=== PATIENT | male | born 1960 | race Caucasian/White ===

== ENCOUNTER 2020-11-07 00:38 | Emergency (ER) | payer MEDICAID ==
[~2020-11-07] VITALS: Ht 160 cm; Wt 68.0 kg
[2020-11-07] MEDS ORDERED: MORPHINE SULFATE 4 MG/ML CPJ (NOT FOR IM USE) IV STA (01:11)
[2020-11-07] MEDS ORDERED: ONDANSETRON HCL 4MG/2ML INJ IV STA (01:11)
[2020-11-07] MEDS ORDERED: SODIUM CHLORIDE 0.9% 1,000 ML IV ONE (01:15)
[2020-11-07 02:35] LABS: BASOPHILS % 0.3 % (0.0-2.0); EOSINOPHILS % 0.2 % (0.0-5.0); HEMOGLOBIN. 15.2 g/dL (14.0-18.0); LYMPHOCYTES % 8.5 % (20.0-50.0); MEAN CORPUSCULAR HEMOGLOBIN 28.8 pg (28.0-32.0); MEAN CORPUSCULAR VOLUME 86.8 fL (80.0-94.0); MEAN PLATELET VOLUME 8.4 fl (7.4-10.4); MONOCYTES % 6.7 % (2.0-8.0); NEUTROPHILS % 84.3 % (40.0-76.0); PLATELET 334 x1000/uL (130-400); RED CELL DISTRIBUTION WIDTH 14.4 % (11.6-14.6)
[2020-11-07 02:42] LABS: CHLORIDE 106 mEq/L (98-107)
[2020-11-07 02:45] LABS: INR 1.2; PROTHROMBIN TIME 12.4 sec (9.6-11.0)
[2020-11-07] MEDS ORDERED: METRONIDAZOLE 500 MG PREMIX 100 ML IV NR (03:00)
[2020-11-07] MEDS ORDERED: CEFTRIAXONE 1 G PREMIX 50 ML IV NR (03:30)
[2020-11-07] MEDS ORDERED: ONDANSETRON HCL 4MG/2ML INJ IV ONE (04:00)
[2020-11-07 04:07] LABS: CLARITY URINE CLEAR (CLEAR); COLOR URINE YELLOW (YELLOW); KETONES URINE 1+ (NEGATIVE); LEUKOCYTE ESTERASE URINE NEGATIVE (NEGATIVE); NITRITE URINE NEGATIVE (NEGATIVE); OCCULT BLOOD URINE NEGATIVE (NEGATIVE); PROTEIN URINE TRACE (NEGATIVE); SPECIFIC GRAVITY URINE 1.021 (1.005-1.030); UROBILINOGEN URINE 0.2 E.U./dL (0.2-1.0)
[2020-11-07 08:45] VITALS: BP 168/8
== END 2020-11-07 09:19 | disposition short-term general hospital (02) ==
LOC: ER 01:03
DX: R10.9 Unspecified abdominal pain (principal); D72.829 Elevated white blood cell count, unspecified; E11.9 Type 2 diabetes mellitus without complications; I10 Essential (primary) hypertension; Z86.59 Personal history of other mental and behavioral disorders; Z86.39 Personal history of other endocrine, nutritional and metabolic disease
CPT/HCPCS: 36415; 71045; 74176; 80053; 81003; 83605; 83690; 84484; 85025; 85610; 87040; 93005; 96361; 96365; 96368; 96375; 96376; 99285; J0696; J2270; J2405; J3490; J7030; Z7610

== ENCOUNTER 2021-07-07 11:52 | Inpatient (IN) | payer MEDICAID ==
[~2021-07-07] VITALS: Ht 162.6 cm; Wt 76.2 kg
[2021-07-07 12:56] LABS: BASOPHILS % 0.4 % (0.0-2.0); EOSINOPHILS % 2.4 % (0.0-5.0); HEMATOCRIT. 46.6 % (42.0-52.0); LYMPHOCYTES % 11.4 % (20.0-50.0); MEAN CORPUSCULAR VOLUME 87.5 fL (80.0-94.0); MEAN PLATELET VOLUME 7.8 fl (7.4-10.4); MONOCYTES % 8.4 % (2.0-8.0); NEUTROPHILS % 77.4 % (40.0-76.0); PLATELET 275 x1000/uL (130-400); RED BLOOD CELL COUNT 5.33 mill/uL (4.7-6.1); RED CELL DISTRIBUTION WIDTH 14.3 % (11.6-14.6)
[2021-07-07 13:03] LABS: CHLORIDE 107 mEq/L (98-107)
[2021-07-07 13:08] LABS: ETHANOL BLOOD < 10 mg/dL
[2021-07-07] MEDS ORDERED: ONDANSETRON 4MG ODT PO ONE (17:45)
[2021-07-07] MEDS ORDERED: ACETAMINOPHEN 325MG TABLET PO ONE (17:45)
[2021-07-07 18:31] LABS: CLARITY URINE CLEAR (CLEAR); COLOR URINE YELLOW (YELLOW); KETONES URINE TRACE (NEGATIVE); LEUKOCYTE ESTERASE URINE NEGATIVE (NEGATIVE); NITRITE URINE NEGATIVE (NEGATIVE); OCCULT BLOOD URINE NEGATIVE (NEGATIVE); PH URINE >=9.0 (4.5-8.0); PROTEIN URINE TRACE (NEGATIVE); SPECIFIC GRAVITY URINE 1.025 (1.005-1.030)
[2021-07-07 18:53] LABS: *AMPHETAMINES SCREEN URINE NEGATIVE (NEGATIVE); *BARBITURATES SCREEN URINE NEGATIVE (NEGATIVE); *BENZODIAZEPINES SCREEN URINE NEGATIVE (NEGATIVE); *COCAINE SCREEN URINE NEGATIVE (NEGATIVE); METHADONE URINE SCREEN NEGATIVE (NEGATIVE)
[2021-07-07 18:54] LABS: CANNABINOID URINE SCREEN NEGATIVE (NEGATIVE); OPIATES URINE SCREEN NEGATIVE (NEGATIVE); PHENCYCLIDINE URINE SCREEN NEGATIVE (NEGATIVE)
[2021-07-08] MEDS ORDERED: CLONIDINE 0.1MG TABLET PO PRN (03:00)
[2021-07-08] MEDS: ONDANSETRON HCL 4MG/2ML INJ IV PRN ×3 (03:16→17:51)
[2021-07-08] MEDS: ASPIRIN 81MG TABLET PO SCH (09:35)
[2021-07-08] MEDS: METOPROLOL TARTRATE 50MG TABLET PO SCH ×2 (09:35→20:44)
[2021-07-08 12:00] VITALS: BP 106/77
[2021-07-08 13:10] VITALS: BP 119/74
[2021-07-08 16:00] VITALS: BP 114/76
[2021-07-08] MEDS ORDERED: KEPP500 PO (18:22)
[2021-07-08] MEDS ORDERED: DOCU250C14 MT (18:22)
[2021-07-08] MEDS ORDERED: FINA5TAB11 MT (18:30)
[2021-07-08] MEDS ORDERED: RISP0.5T65 PO (18:30)
[2021-07-08] MEDS ORDERED: LIP40 MT (18:30)
[2021-07-08] MEDS ORDERED: DIVA250T4 PO (18:30)
[2021-07-08] MEDS ORDERED: ASPI-1497 MT (18:30)
[2021-07-08 20:00] VITALS: BP 110/73
[2021-07-08] MEDS: ENOXAPARIN 40MG/0.4ML SYR SUBCUT SCH (20:44)
[2021-07-09] VITALS: BP 114/63
[2021-07-09 04:00] VITALS: BP 100/69
[2021-07-09 08:00] VITALS: BP 99/72
[2021-07-09 08:42] LABS: BASOPHILS % 0.3 % (0.0-2.0); EOSINOPHILS % 0.1 % (0.0-5.0); HEMATOCRIT. 39.6 % (42.0-52.0); HEMOGLOBIN. 13.5 g/dL (14.0-18.0); LYMPHOCYTES % 9.3 % (20.0-50.0); MEAN CORPUSCULAR HEMOGLOBIN 29.4 pg (28.0-32.0); MEAN PLATELET VOLUME 7.7 fl (7.4-10.4); NEUTROPHILS % 80.3 % (40.0-76.0); PLATELET 301 x1000/uL (130-400); RED CELL DISTRIBUTION WIDTH 13.8 % (11.6-14.6)
[2021-07-09 08:43] LABS: CHLORIDE 104 mEq/L (98-107)
[2021-07-09] MEDS: METOPROLOL TARTRATE 50MG TABLET PO SCH ×2 (09:00→21:00)
[2021-07-09] MEDS: ASPIRIN 81MG TABLET PO SCH (10:08)
[2021-07-09 12:00] VITALS: BP 108/75
[2021-07-09 16:02] VITALS: BP 117/68
[2021-07-09] MEDS: PIPERACILLIN/TAZOBACTAM 3.375 G in DEXTROSE 5% WATER 50 ML IV SCH ×2 (16:35→21:03)
[2021-07-09 20:00] VITALS: BP 100/54
[2021-07-09] MEDS: ENOXAPARIN 40MG/0.4ML SYR SUBCUT SCH (21:03)
[2021-07-10] VITALS: BP 99/56
[2021-07-10 04:00] VITALS: BP 111/64
[2021-07-10] MEDS: PIPERACILLIN/TAZOBACTAM 3.375 G in DEXTROSE 5% WATER 50 ML IV SCH ×3 (05:01→21:00)
[2021-07-10 07:54] LABS: HEMATOCRIT. 33.7 % (42.0-52.0); HEMOGLOBIN. 11.7 g/dL (14.0-18.0); MEAN CORPUSCULAR HEMOGLOBIN 29.6 pg (28.0-32.0); MEAN PLATELET VOLUME 7.5 fl (7.4-10.4); PLATELET 252 x1000/uL (130-400); RED BLOOD CELL COUNT 3.96 mill/uL (4.7-6.1); RED CELL DISTRIBUTION WIDTH 13.7 % (11.6-14.6)
[2021-07-10 07:58] LABS: CHLORIDE 108 mEq/L (98-107)
[2021-07-10 08:00] VITALS: BP 112/74
[2021-07-10] MEDS: METOPROLOL TARTRATE 50MG TABLET PO SCH ×2 (09:23→20:43)
[2021-07-10] MEDS: ASPIRIN 81MG TABLET PO SCH (09:23)
[2021-07-10] MEDS ORDERED: IOHEXOL-300 100 ML BOTTLE ONE (10:15)
[2021-07-10 12:00] VITALS: BP 106/69
[2021-07-10 14:15] LABS: PLATELET ESTIMATE NORMAL
[2021-07-10 16:00] VITALS: BP 117/73
[2021-07-10 20:00] VITALS: BP 108/67
[2021-07-10] MEDS: ENOXAPARIN 40MG/0.4ML SYR SUBCUT SCH (21:00)
[2021-07-11] VITALS (7 sets, daily range): BP systolic 110–125; BP diastolic 52–80
[2021-07-11] MEDS: PIPERACILLIN/TAZOBACTAM 3.375 G in DEXTROSE 5% WATER 50 ML IV SCH ×2 (05:02→13:37)
[2021-07-11] MEDS: METOPROLOL TARTRATE 50MG TABLET PO SCH (09:32)
[2021-07-11] MEDS: ASPIRIN 81MG TABLET PO SCH (09:32)
[2021-07-12] MEDS ORDERED: CIPR-263 MT (17:18)
== END 2021-07-11 20:51 | DRG 720 ==
LOC: ER 11:52 → 5WST 21:09 → EDBEDREQ 21:20 → EDBEDREQTM 21:20 → MICUSO 22:26 → 7EST 07-08 13:01
PROVIDERS: ADMIT Internal Medicine; ATTEND Internal Medicine
PROC: 02HV33Z Insertion of Infusion Device into Superior Vena Cava, Percutaneous Approach (ICD-10-PCS; principal; 2021-07-07)
PROC: B548ZZA Ultrasonography of Superior Vena Cava, Guidance (ICD-10-PCS; 2021-07-07)
DX: A41.9 Sepsis, unspecified organism (principal); E03.9 Hypothyroidism, unspecified; K52.9 Noninfective gastroenteritis and colitis, unspecified; J44.9 Chronic obstructive pulmonary disease, unspecified; E11.9 Type 2 diabetes mellitus without complications; F20.9 Schizophrenia, unspecified; I10 Essential (primary) hypertension; I45.10 Unspecified right bundle-branch block; K21.9 Gastro-esophageal reflux disease without esophagitis; R07.89 Other chest pain; Z20.822 Contact with and (suspected) exposure to COVID-19; Z83.3 Family history of diabetes mellitus
CPT/HCPCS: 36415; 71045; 74177; 76937; 80048; 80053; 80305; 80320; 81003; 82962; 83880; 84484; 85025; 87426; 93005; 93306; 99285; C1725; J1650; J2405; J2543; J7060; Q0162; Q9967; G0480

== ENCOUNTER 2021-07-12 07:50 | Emergency (ER) | payer MEDICAID ==
[~2021-07-12] VITALS: Ht 167.6 cm; Wt 60.0 kg
[~2021-07-12 07:50] MED LIST: ASPI-1497 MT; DIVA250T4 PO; DOCU250C14 MT; FINA5TAB11 MT; KEPP500 PO; LIP40 MT; RISP0.5T65 PO
[2021-07-12] MEDS ORDERED: LEVETIRACETAM 1000MG PREMIX 100 ML IV ONE (08:45)
[2021-07-12 09:37] LABS: BASOPHILS % 0.5 % (0.0-2.0); EOSINOPHILS % 0.3 % (0.0-5.0); HEMATOCRIT. 37.7 % (42.0-52.0); HEMOGLOBIN. 12.9 g/dL (14.0-18.0); LYMPHOCYTES % 17.4 % (20.0-50.0); MEAN CORPUSCULAR HEMOGLOBIN 29.8 pg (28.0-32.0); MEAN CORPUSCULAR VOLUME 86.8 fL (80.0-94.0); MONOCYTES % 12.9 % (2.0-8.0); NEUTROPHILS % 68.9 % (40.0-76.0); RED BLOOD CELL COUNT 4.34 mill/uL (4.7-6.1); RED CELL DISTRIBUTION WIDTH 13.9 % (11.6-14.6)
[2021-07-12 09:42] LABS: CHLORIDE 111 mEq/L (98-107)
[2021-07-12 09:45] LABS: ETHANOL BLOOD < 10 mg/dL
[2021-07-12 13:14] LABS: PLATELET 303 x1000/uL (130-400)
[2021-07-12 13:15] LABS: MEAN PLATELET VOLUME 7.5 fl (7.4-10.4); PLATELET ESTIMATE NORMAL
[2021-07-12 15:54] LABS: *AMPHETAMINES SCREEN URINE NEGATIVE (NEGATIVE); *BARBITURATES SCREEN URINE NEGATIVE (NEGATIVE); *BENZODIAZEPINES SCREEN URINE NEGATIVE (NEGATIVE); *COCAINE SCREEN URINE NEGATIVE (NEGATIVE)
[2021-07-12 15:55] LABS: CANNABINOID URINE SCREEN NEGATIVE (NEGATIVE); METHADONE URINE SCREEN NEGATIVE (NEGATIVE); OPIATES URINE SCREEN NEGATIVE (NEGATIVE); PHENCYCLIDINE URINE SCREEN NEGATIVE (NEGATIVE)
[2021-07-12 15:57] LABS: CLARITY URINE CLEAR (CLEAR); COLOR URINE YELLOW (YELLOW); KETONES URINE NEGATIVE (NEGATIVE); LEUKOCYTE ESTERASE URINE TRACE (NEGATIVE); NITRITE URINE NEGATIVE (NEGATIVE); OCCULT BLOOD URINE NEGATIVE (NEGATIVE); PH URINE 6.5 (4.5-8.0); PROTEIN URINE NEGATIVE (NEGATIVE); SPECIFIC GRAVITY URINE 1.018 (1.005-1.030); UROBILINOGEN URINE 0.2 E.U./dL (0.2-1.0)
[2021-07-12] MEDS ORDERED: CIPR-263 MT (17:18)
[2021-07-12 23:30] VITALS: BP 112/78
== END 2021-07-13 00:22 ==
LOC: ER 08:02
DX: G40.909 Epilepsy, unspecified, not intractable, without status epilepticus (principal); F03.90 Unspecified dementia, unspecified severity, without behavioral disturbance, psychotic disturbance, mood disturbance, and anxiety; E78.00 Pure hypercholesterolemia, unspecified; Z79.82 Long term (current) use of aspirin
CPT/HCPCS: 36415; 70450; 80053; 80305; 80320; 81003; 85025; 93005; 96365; 96366; 99285; J1953; Z7610; G0480

== ENCOUNTER 2021-07-15 19:52 | Inpatient (IN) | payer MEDICAID ==
[~2021-07-15] VITALS: Ht 162.6 cm; Wt 83.5 kg
[~2021-07-15 19:52] MED LIST changes: +CIPR-263 MT
[2021-07-15] MEDS ORDERED: LEVETIRACETAM 1000MG PREMIX 100 ML IV ONE (21:15)
[2021-07-15 22:48] LABS: BASOPHILS % 0.4 % (0.0-2.0); EOSINOPHILS % 1.1 % (0.0-5.0); HEMOGLOBIN. 11.5 g/dL (14.0-18.0); LYMPHOCYTES % 21.6 % (20.0-50.0); MEAN CORPUSCULAR HEMOGLOBIN 29.1 pg (28.0-32.0); MEAN CORPUSCULAR VOLUME 88.1 fL (80.0-94.0); MEAN PLATELET VOLUME 7.5 fl (7.4-10.4); MONOCYTES % 14.1 % (2.0-8.0); NEUTROPHILS % 62.8 % (40.0-76.0); PLATELET 358 x1000/uL (130-400); RED BLOOD CELL COUNT 3.97 mill/uL (4.7-6.1); RED CELL DISTRIBUTION WIDTH 13.9 % (11.6-14.6)
[2021-07-15 22:54] LABS: CHLORIDE 110 mEq/L (98-107)
[2021-07-16 01:34] LABS: CLARITY URINE CLEAR (CLEAR); COLOR URINE YELLOW (YELLOW); KETONES URINE NEGATIVE (NEGATIVE); LEUKOCYTE ESTERASE URINE TRACE (NEGATIVE); NITRITE URINE NEGATIVE (NEGATIVE); OCCULT BLOOD URINE NEGATIVE (NEGATIVE); PH URINE 6.5 (4.5-8.0); PROTEIN URINE NEGATIVE (NEGATIVE); SPECIFIC GRAVITY URINE 1.022 (1.005-1.030); UROBILINOGEN URINE 0.2 E.U./dL (0.2-1.0)
[2021-07-16 01:53] LABS: *AMPHETAMINES SCREEN URINE NEGATIVE (NEGATIVE)
[2021-07-16 01:54] LABS: *BARBITURATES SCREEN URINE NEGATIVE (NEGATIVE); *BENZODIAZEPINES SCREEN URINE NEGATIVE (NEGATIVE); *COCAINE SCREEN URINE NEGATIVE (NEGATIVE); METHADONE URINE SCREEN NEGATIVE (NEGATIVE); OPIATES URINE SCREEN NEGATIVE (NEGATIVE); PHENCYCLIDINE URINE SCREEN NEGATIVE (NEGATIVE)
[2021-07-16 01:55] LABS: CANNABINOID URINE SCREEN NEGATIVE (NEGATIVE)
[2021-07-16] MEDS ORDERED: IPRATROPIUM BROMIDE (0.02%) 0.5MG/2.5ML NEB HHN STA (02:49)
[2021-07-16] MEDS ORDERED: LORAZEPAM 2MG/ML CPJ IV ONE (03:00)
[2021-07-16] MEDS: ALBUTEROL (0.083%) 2.5MG/3ML NEB HHN SCH (03:08)
[2021-07-16] MEDS ORDERED: SODIUM CHLORIDE 0.9% 500 ML IV ONE (03:15)
[2021-07-16] MEDS ORDERED: METHYLPREDNISOLONE SOD SUCC 125 MG/2 ML VIAL IV STA (03:34)
[2021-07-16 08:00] VITALS: BP 119/69
[2021-07-16 09:00] VITALS: BP 119/69
[2021-07-16] MEDS ORDERED: ACETAMINOPHEN 325MG TABLET PO PRN (09:00)
[2021-07-16] MEDS ORDERED: ONDANSETRON HCL 4MG/2ML INJ IV PRN (09:00)
[2021-07-16] MEDS ORDERED: DIVALPROEX SODIUM 250MG DR TABLET PO SCH (09:45)
[2021-07-16] MEDS: LEVETIRACETAM 500MG TABLET PO SCH ×2 (10:16→16:33)
[2021-07-16] MEDS: LORAZEPAM 2MG/ML CPJ IV PRN ×3 (10:48→17:42)
[2021-07-16 12:00] VITALS: BP 120/72
[2021-07-16 15:55] VITALS: BP 130/79
[2021-07-16] MEDS ORDERED: LEVETIRACETAM 1,000 MG in SODIUM CHLORIDE 0.9% 100 ML IV SCH (19:45)
[2021-07-16 20:00] VITALS: BP 138/76
[2021-07-16] MEDS: LEVETIRACETAM 1,000 MG in SODIUM CHLORIDE 0.9% 100 ML IV SCH (20:47)
[2021-07-16] MEDS ORDERED: PHENYTOIN SODIUM 500 MG in SODIUM CHLORIDE 0.9% 50 ML IV ONE (21:00)
[2021-07-16] MEDS ORDERED: LEVETIRACETAM 1000MG PREMIX 100 ML IV SCH (21:00)
[2021-07-16] MEDS: PHENYTOIN SODIUM 100MG/2ML VIAL IV SCH (22:02)
[2021-07-17] VITALS (7 sets, daily range): BP systolic 100–149; BP diastolic 54–94
[2021-07-17] MEDS: PHENYTOIN SODIUM 100MG/2ML VIAL IV SCH ×2 (06:10→13:15)
[2021-07-17] MEDS: LEVETIRACETAM 1,000 MG in SODIUM CHLORIDE 0.9% 100 ML IV SCH (08:47)
[2021-07-17] MEDS: PHENYTOIN SODIUM EXTENDED 100MG CAPSULE PO SCH (21:36)
[2021-07-17] MEDS: LEVETIRACETAM 500MG TABLET PO SCH (21:37)
[2021-07-18] VITALS (7 sets, daily range): BP systolic 99–116; BP diastolic 59–78
[2021-07-18] MEDS: PHENYTOIN SODIUM EXTENDED 100MG CAPSULE PO SCH ×3 (05:52→21:07)
[2021-07-18] MEDS: LEVETIRACETAM 500MG TABLET PO SCH ×2 (08:32→21:08)
[2021-07-18 13:46] LABS: BASOPHILS % 0.2 % (0.0-2.0); EOSINOPHILS % 0.9 % (0.0-5.0); HEMATOCRIT. 36.1 % (42.0-52.0); HEMOGLOBIN. 12.1 g/dL (14.0-18.0); LYMPHOCYTES % 21.1 % (20.0-50.0); MEAN CORPUSCULAR HEMOGLOBIN 29.2 pg (28.0-32.0); MEAN CORPUSCULAR VOLUME 87.1 fL (80.0-94.0); MEAN PLATELET VOLUME 7.9 fl (7.4-10.4); MONOCYTES % 7.5 % (2.0-8.0); NEUTROPHILS % 70.3 % (40.0-76.0); PLATELET 383 x1000/uL (130-400); RED BLOOD CELL COUNT 4.14 mill/uL (4.7-6.1); RED CELL DISTRIBUTION WIDTH 14.2 % (11.6-14.6)
== END 2021-07-18 22:05 | DRG 53 ==
LOC: ER 19:52 → 8WST 07-16 03:07 → ENRESERV 07-16 07:14
PROVIDERS: ADMIT Internal Medicine; ATTEND Internal Medicine
DX: G40.419 Other generalized epilepsy and epileptic syndromes, intractable, without status epilepticus (principal); E44.0 Moderate protein-calorie malnutrition; E87.8 Other disorders of electrolyte and fluid balance, not elsewhere classified; D64.9 Anemia, unspecified; E66.9 Obesity, unspecified; E11.9 Type 2 diabetes mellitus without complications; F20.9 Schizophrenia, unspecified; I10 Essential (primary) hypertension; Z79.2 Long term (current) use of antibiotics; Z79.82 Long term (current) use of aspirin; Z79.899 Other long term (current) drug therapy; Z68.31 Body mass index [BMI] 31.0-31.9, adult
CPT/HCPCS: 36415; 71045; 80053; 80185; 80305; 81003; 84484; 85025; 93005; 94640; 99291; J1165; J1953; J2060; J2930; J7040; J7050

== ENCOUNTER 2022-04-05 09:44 | Emergency (ER) | payer MEDICAID ==
[~2022-04-05] VITALS: Ht 172.7 cm; Wt 80.0 kg
[2022-04-05] MEDS ORDERED: ONDANSETRON 4MG ODT PO ONE (11:00)
[2022-04-05] MEDS ORDERED: ONDA4SOL MT (15:17)
[2022-04-05 16:38] VITALS: BP 116/75
== END 2022-04-05 16:56 ==
LOC: ER 09:44
DX: R11.2 Nausea with vomiting, unspecified (principal); J44.9 Chronic obstructive pulmonary disease, unspecified; I10 Essential (primary) hypertension; E03.9 Hypothyroidism, unspecified; Z79.899 Other long term (current) drug therapy
CPT/HCPCS: 99285; Q0162

== ENCOUNTER 2022-04-06 09:50 | Emergency (ER) | payer MEDICAID ==
[~2022-04-06] VITALS: Ht 177.8 cm; Wt 86.0 kg
[~2022-04-06 09:50] MED LIST changes: +ONDA4SOL MT
[2022-04-06] MEDS ORDERED: KETOROLAC 30MG/ML VIAL IV STA (09:57)
[2022-04-06 11:25] LABS: BASOPHILS % 0.3 % (0.0-2.0); EOSINOPHILS % 0.3 % (0.0-5.0); HEMATOCRIT. 42.5 % (42.0-52.0); HEMOGLOBIN. 14.2 g/dL (14.0-18.0); LYMPHOCYTES % 7.1 % (20.0-50.0); MEAN CORPUSCULAR HEMOGLOBIN 26.8 pg (28.0-32.0); MEAN CORPUSCULAR VOLUME 80.2 fL (80.0-94.0); MEAN PLATELET VOLUME 7.6 fl (7.4-10.4); MONOCYTES % 9.2 % (2.0-8.0); NEUTROPHILS % 83.1 % (40.0-76.0); PLATELET 519 x1000/uL (130-400); RED CELL DISTRIBUTION WIDTH 15.5 % (11.6-14.6)
[2022-04-06 11:38] LABS: CHLORIDE 107 mEq/L (98-107)
[2022-04-06] MEDS: KETOROLAC 30MG/ML VIAL IV NR ×2 (12:10→16:58)
[2022-04-06 22:30] VITALS: BP 128/88
== END 2022-04-06 22:44 | disposition short-term general hospital (02) ==
LOC: ER 09:50 → CANBEDREQ 04-07 07:18
DX: R07.89 Other chest pain (principal); J44.1 Chronic obstructive pulmonary disease with (acute) exacerbation; E11.9 Type 2 diabetes mellitus without complications; I10 Essential (primary) hypertension; Z20.822 Contact with and (suspected) exposure to COVID-19; Z79.899 Other long term (current) drug therapy; Z86.73 Personal history of transient ischemic attack (TIA), and cerebral infarction without residual deficits
CPT/HCPCS: 36415; 71045; 80053; 83880; 84484; 85025; 87426; 93005; 96374; 99285; C9803; J1885; A4315

== ENCOUNTER 2023-01-26 00:10 | Emergency (ER) | payer MEDICAID ==
[~2023-01-26] VITALS: Ht 152.4 cm; Wt 75.0 kg
[2023-01-26 00:13] VITALS: O2SAT 97
[2023-01-26] MEDS ORDERED: MORPHINE SULFATE 4 MG/ML CPJ (NOT FOR IM USE) IV STA (00:36)
[2023-01-26] MEDS ORDERED: CEFTRIAXONE 1GM PREMIX 50 ML IV ONE (00:45)
[2023-01-26] MEDS ORDERED: PANTOPRAZOLE SODIUM 40 MG/VIAL IV ONE (00:45)
[2023-01-26 02:35] LABS: BASOPHILS % 0.9 % (0.0-2.0); EOSINOPHILS % 1.4 % (0.0-5.0); HEMATOCRIT. 46.6 % (42.0-52.0); HEMOGLOBIN. 15.1 g/dL (14.0-18.0); LYMPHOCYTES % 10.7 % (20.0-50.0); MEAN CORPUSCULAR HEMOGLOBIN 27.7 pg (28.0-32.0); MEAN CORPUSCULAR VOLUME 85.1 fL (80.0-94.0); MEAN PLATELET VOLUME 8.2 fl (7.4-10.4); MONOCYTES % 6.1 % (2.0-8.0); NEUTROPHILS % 80.9 % (40.0-76.0); PLATELET 550 x1000/uL (130-400); RED BLOOD CELL COUNT 5.47 mill/uL (4.7-6.1); RED CELL DISTRIBUTION WIDTH 15.1 % (11.6-14.6)
[2023-01-26 02:44] LABS: CHLORIDE 112 mEq/L (98-107)
[2023-01-26] MEDS: PANTOPRAZOLE SODIUM 40 MG/VIAL IV NR ×2 (02:44→02:46)
[2023-01-26] MEDS: MORPHINE SULFATE 4 MG/ML CPJ (NOT FOR IM USE) IV NR ×2 (02:44→02:46)
[2023-01-26 07:04] LABS: INR 1.1; PROTHROMBIN TIME 12.2 sec (9.6-11.0)
[2023-01-26 08:31] VITALS: BP 139/78; PULSE 99; RESP 17; TEMP 97.4
== END 2023-01-26 09:00 | disposition short-term general hospital (02) ==
LOC: ER 02:42 → CANBEDREQ 07:07 → ER 09:00
DX: K92.2 Gastrointestinal hemorrhage, unspecified (principal); I10 Essential (primary) hypertension; E11.9 Type 2 diabetes mellitus without complications; J44.1 Chronic obstructive pulmonary disease with (acute) exacerbation; Z79.899 Other long term (current) drug therapy; Z86.39 Personal history of other endocrine, nutritional and metabolic disease; Z86.59 Personal history of other mental and behavioral disorders
CPT/HCPCS: 80053; 83690; 85025; 85610; 86850; 86900; 86901; 84484; 36415; 71045; 74176; 93005; 96365; 96375; 99285; J0696; C9113; J2270; Z7610 ×2

== ENCOUNTER 2023-09-26 12:08 | Emergency (ER) | payer MEDICAID ==
[~2023-09-26] VITALS: Ht 165.1 cm; Wt 82.0 kg
[~2023-09-26 12:08] MED LIST changes: -RISP0.5T65 PO; +RISP0.5T79 PO
[2023-09-26 12:14] VITALS: O2SAT 100
[2023-09-26] MEDS: LEVETIRACETAM 1000MG PREMIX 100 ML IV ONE (12:15)
[2023-09-26 13:05] LABS: BASOPHILS % 0.6 % (0.0-2.0); EOSINOPHILS % 4.2 % (0.0-5.0); MEAN CORPUSCULAR HEMOGLOBIN 27.5 pg (28.0-32.0); MEAN CORPUSCULAR HGB CONC 33.4 g/dL (31.0-37.0); MEAN CORPUSCULAR VOLUME 82.2 fL (80.0-94.0); MEAN PLATELET VOLUME 7.6 fl (7.4-10.4); MONOCYTES % 8.1 % (2.0-8.0); NEUTROPHILS % 76.1 % (40.0-76.0); PLATELET 554 x1000/uL (130-400); RED BLOOD CELL COUNT 5.11 mill/uL (4.7-6.1); WHITE BLOOD COUNT 10.5 x1000/uL (4.5-11.0)
[2023-09-26 13:19] LABS: ALANINE AMINOTRANSFERASE 17 IU/L (10-49); ALBUMIN 4.5 g/dL (3.2-4.8); ASPARTATE AMINOTRANSFERASE 13 IU/L (<34); BILIRUBIN TOTAL 0.3 mg/dL (0.1-1.0); CALCIUM 9.1 mg/dL (8.7-10.4); CARBON DIOXIDE 26 mEq/L (21-32); CHLORIDE 109 mEq/L (98-107); CREATININE 0.8 mg/dL (0.6-1.3); ETHANOL BLOOD < 10 mg/dL (<10); GLUCOSE 115 mg/dL (70-105); POTASSIUM 4.4 mEq/L (3.5-5.1); PROTEIN TOTAL 7.7 g/dL (6.0-8.3); SODIUM 141 mEq/L (136-145); TROPONIN I HIGH SENSITIVITY < 4 ng/L (3.0-53); UREA NITROGEN BLOOD 8 mg/dL (9-23)
[2023-09-26 15:58] LABS: CLARITY URINE CLEAR (CLEAR); COLOR URINE YELLOW (YELLOW); GLUCOSE URINE NEGATIVE (NEGATIVE); KETONES URINE NEGATIVE (NEGATIVE); LEUKOCYTE ESTERASE URINE NEGATIVE (NEGATIVE); NITRITE URINE NEGATIVE (NEGATIVE); OCCULT BLOOD URINE NEGATIVE (NEGATIVE); PH URINE 7.5 (4.5-8.0); PROTEIN URINE NEGATIVE (NEGATIVE); UROBILINOGEN URINE 0.2 E.U./dL (0.2-1.0)
[2023-09-26 16:26] LABS: *AMPHETAMINES SCREEN URINE NEGATIVE (NEGATIVE); *BARBITURATES SCREEN URINE NEGATIVE (NEGATIVE); *BENZODIAZEPINES SCREEN URINE NEGATIVE (NEGATIVE); *COCAINE SCREEN URINE NEGATIVE (NEGATIVE); CANNABINOID URINE SCREEN NEGATIVE (NEGATIVE); ECSTASY MDMA SCREEN URINE NEGATIVE (NEGATIVE); METHADONE URINE SCREEN Neg (NEGATIVE); OPIATES URINE SCREEN NEGATIVE (NEGATIVE); PHENCYCLIDINE URINE SCREEN NEGATIVE (NEGATIVE)
[2023-09-26 17:56] VITALS: BP 121/69; PULSE 78; RESP 14; TEMP 97.4
== END 2023-09-26 17:58 ==
LOC: ER 12:08
DX: R56.9 Unspecified convulsions (principal); J44.9 Chronic obstructive pulmonary disease, unspecified; E11.9 Type 2 diabetes mellitus without complications; I10 Essential (primary) hypertension; E03.9 Hypothyroidism, unspecified; D64.9 Anemia, unspecified
CPT/HCPCS: 80053; 80305; 81003; 80320; 85025; 84484; 36415; 70450; 96365; 99285; J1953; G0480

== ENCOUNTER 2023-12-19 10:18 | Inpatient (IN) | payer MEDICAID ==
[~2023-12-19] VITALS: Ht 170.2 cm; Wt 78.6 kg
[2023-12-19 11:19] LABS: BASOPHILS % 0.5 % (0.0-2.0); EOSINOPHILS % 1.4 % (0.0-5.0); HEMATOCRIT. 40.3 % (42.0-52.0); HEMOGLOBIN. 13.3 g/dL (14.0-18.0); LYMPHOCYTES % 8.6 % (20.0-50.0); MEAN CORPUSCULAR HEMOGLOBIN 27.1 pg (28.0-32.0); MEAN CORPUSCULAR HGB CONC 33.1 g/dL (31.0-37.0); MEAN CORPUSCULAR VOLUME 81.9 fL (80.0-94.0); MEAN PLATELET VOLUME 7.6 fl (7.4-10.4); MONOCYTES % 10.4 % (2.0-8.0); NEUTROPHILS % 79.1 % (40.0-76.0); PLATELET 410 x1000/uL (130-400); RED BLOOD CELL COUNT 4.92 mill/uL (4.7-6.1); RED CELL DISTRIBUTION WIDTH 15.6 % (11.6-14.6); WHITE BLOOD COUNT 16.1 x1000/uL (4.5-11.0)
[2023-12-19 11:27] LABS: CARBON DIOXIDE 27 mEq/L (21-32); CHLORIDE 105 mEq/L (98-107); POTASSIUM 3.5 mEq/L (3.5-5.1); SODIUM 139 mEq/L (136-145)
[2023-12-19 11:31] LABS: INR 1.3
[2023-12-19 11:33] LABS: CREATININE 0.8 mg/dL (0.6-1.3); GLUCOSE 119 mg/dL (70-105); UREA NITROGEN BLOOD 6 mg/dL (9-23)
[2023-12-19] MEDS: PANTOPRAZOLE SODIUM 40 MG/VIAL IV STA (11:51)
[2023-12-19] MEDS: ONDANSETRON HCL 4MG/2ML INJ IV STA (11:51)
[2023-12-19 17:42] VITALS: BP 106/65; PULSE 80; RESP 18; TEMP 97.9
[2023-12-19 17:48] VITALS: BP 106/65; PULSE 80; RESP 18; TEMP 97.9
[2023-12-19 18:08] LABS: CLARITY URINE CLEAR (CLEAR); COLOR URINE DARK YELLOW (YELLOW); GLUCOSE URINE NEGATIVE (NEGATIVE); KETONES URINE TRACE (NEGATIVE); LEUKOCYTE ESTERASE URINE TRACE (NEGATIVE); NITRITE URINE NEGATIVE (NEGATIVE); OCCULT BLOOD URINE NEGATIVE (NEGATIVE); PROTEIN URINE TRACE (NEGATIVE); SPECIFIC GRAVITY URINE 1.025 (1.005-1.030); UROBILINOGEN URINE 0.2 E.U./dL (0.2-1.0)
[2023-12-19] MEDS ORDERED: ACETAMINOPHEN 325MG TABLET PO PRN (18:30)
[2023-12-19] MEDS ORDERED: ONDANSETRON HCL 4MG/2ML INJ IV PRN (18:30)
[2023-12-19 18:37] LABS: BACTERIA URINE 1+; RBC URINE NONE SEEN /hpf (0-2); SQUAMOUS EPITHELIAL CELL URINE RARE /lpf (RARE/1+); WBC URINE 0-2 /hpf (0-2)
[2023-12-19 19:26] LABS: HEMOGLOBIN 12.6 g/dL (14.0-18.0)
[2023-12-19 20:00] VITALS: BP 134/80; PULSE 91; RESP 20; TEMP 97.8
[2023-12-19 23:52] VITALS: BP 115/66; PULSE 83; RESP 18; TEMP 97
[2023-12-20 04:00] VITALS: BP 121/69; PULSE 87; RESP 18; TEMP 98.1
[2023-12-20 07:26] LABS: CHLORIDE 107 mEq/L (98-107); POTASSIUM 3.4 mEq/L (3.5-5.1); SODIUM 137 mEq/L (136-145)
[2023-12-20 07:27] LABS: CALCIUM 8.4 mg/dL (8.7-10.4); CARBON DIOXIDE 21 mEq/L (21-32)
[2023-12-20 07:32] LABS: CREATININE 0.6 mg/dL (0.6-1.3); GLUCOSE 87 mg/dL (70-105)
[2023-12-20 07:34] LABS: UREA NITROGEN BLOOD < 5 mg/dL (9-23)
[2023-12-20 07:51] LABS: BASOPHILS % 0.5 % (0.0-2.0); EOSINOPHILS % 4.1 % (0.0-5.0); HEMATOCRIT. 37.4 % (42.0-52.0); HEMOGLOBIN. 12.2 g/dL (14.0-18.0); LYMPHOCYTES % 14.1 % (20.0-50.0); MEAN CORPUSCULAR HEMOGLOBIN 27.1 pg (28.0-32.0); MEAN CORPUSCULAR HGB CONC 32.6 g/dL (31.0-37.0); MEAN PLATELET VOLUME 7.9 fl (7.4-10.4); MONOCYTES % 9.9 % (2.0-8.0); NEUTROPHILS % 71.4 % (40.0-76.0); PLATELET 207 x1000/uL (130-400); RED CELL DISTRIBUTION WIDTH 15.5 % (11.6-14.6); WHITE BLOOD COUNT 12.3 x1000/uL (4.5-11.0)
[2023-12-20 08:00] VITALS: BP 113/79; PULSE 80; RESP 20; TEMP 97.6
[2023-12-20] MEDS: PANTOPRAZOLE SODIUM 40 MG/VIAL IV SCH (08:55)
[2023-12-20] MEDS: POTASSIUM CHLORIDE 20MEQ TABLET SR PO NR (08:55)
[2023-12-20 12:00] VITALS: BP 120/79; PULSE 80; RESP 18; TEMP 97.7
[2023-12-20 16:00] VITALS: BP 99/54; PULSE 79; RESP 16; TEMP 97.3
[2023-12-20 20:00] VITALS: BP 133/65; PULSE 102; RESP 20; TEMP 99.1
[2023-12-20 22:26] VITALS: BP 124/66; PULSE 100; TEMP 98.2; O2SAT 98
== END 2023-12-20 23:30 | DRG 243 ==
LOC: ER 10:43 → 5WST 12:36 → EDBEDREQTM 12:44 → EDBEDREQ 12:44 → 7WST 18:26
PROVIDERS: ADMIT Internal Medicine; ATTEND Internal Medicine
DX: K21.01 Gastro-esophageal reflux disease with esophagitis, with bleeding (principal); D64.9 Anemia, unspecified; E11.9 Type 2 diabetes mellitus without complications; D72.829 Elevated white blood cell count, unspecified; F20.9 Schizophrenia, unspecified; I10 Essential (primary) hypertension; J44.9 Chronic obstructive pulmonary disease, unspecified; Z86.73 Personal history of transient ischemic attack (TIA), and cerebral infarction without residual deficits; Z79.899 Other long term (current) drug therapy
CPT/HCPCS: 36415; 80048; 81003; 85014; 85018; 85025; 86850; 86900; 93005; 99285; C9113; J2405

== ENCOUNTER 2024-01-22 08:54 | Emergency (ER) | payer MEDICAID ==
[~2024-01-22] VITALS: Ht 152.4 cm; Wt 65.0 kg
[~2024-01-22 08:54] MED LIST changes: -CIPR-263 MT
[2024-01-22 08:57] VITALS: O2SAT 97
[2024-01-22 10:15] LABS: BASOPHILS % 0.7 % (0.0-2.0); DIFFERENTIAL COMMENT 0; EOSINOPHILS % 2.9 % (0.0-5.0); HEMATOCRIT. 44.1 % (42.0-52.0); HEMOGLOBIN. 14.2 g/dL (14.0-18.0); LYMPHOCYTES % 13.1 % (20.0-50.0); MEAN CORPUSCULAR HEMOGLOBIN 25.8 pg (28.0-32.0); MEAN CORPUSCULAR HGB CONC 32.1 g/dL (31.0-37.0); MEAN CORPUSCULAR VOLUME 80.5 fL (80.0-94.0); MEAN PLATELET VOLUME 7.7 fl (7.4-10.4); MONOCYTES % 9.2 % (2.0-8.0); NEUTROPHILS % 74.1 % (40.0-76.0); PLATELET 520 x1000/uL (130-400); RED BLOOD CELL COUNT 5.48 mill/uL (4.7-6.1); RED CELL DISTRIBUTION WIDTH 15.3 % (11.6-14.6); WHITE BLOOD COUNT 11.4 x1000/uL (4.5-11.0)
[2024-01-22 10:17] LABS: CARBON DIOXIDE 24 mEq/L (21-32); CHLORIDE 108 mEq/L (98-107); POTASSIUM 3.8 mEq/L (3.5-5.1); SODIUM 140 mEq/L (136-145)
[2024-01-22 10:18] LABS: CALCIUM 9.5 mg/dL (8.7-10.4)
[2024-01-22 10:22] LABS: CREATININE 0.8 mg/dL (0.6-1.3); GLUCOSE 104 mg/dL (70-105)
[2024-01-22 10:27] LABS: UREA NITROGEN BLOOD < 5 mg/dL (9-23)
[2024-01-22 11:18] LABS: CLARITY URINE CLEAR (CLEAR); COLOR URINE YELLOW (YELLOW); GLUCOSE URINE NEGATIVE (NEGATIVE); KETONES URINE NEGATIVE (NEGATIVE); LEUKOCYTE ESTERASE URINE TRACE (NEGATIVE); NITRITE URINE NEGATIVE (NEGATIVE); OCCULT BLOOD URINE NEGATIVE (NEGATIVE); PROTEIN URINE NEGATIVE (NEGATIVE); SPECIFIC GRAVITY URINE 1.006 (1.005-1.030); UROBILINOGEN URINE 0.2 E.U./dL (0.2-1.0)
[2024-01-22 11:37] LABS: BACTERIA URINE RARE; RBC URINE NONE SEEN /hpf (0-2); SQUAMOUS EPITHELIAL CELL URINE RARE /lpf (RARE/1+); WBC URINE 0-2 /hpf (0-2); YEAST URINE NONE SEEN
[2024-01-22] MEDS: LEVETIRACETAM 500MG PREMIX 100 ML IV ONE (13:07)
[2024-01-22 17:23] VITALS: BP 131/69; PULSE 70; RESP 14; TEMP 98.3
== END 2024-01-22 17:26 ==
LOC: ER 08:55 → CANBEDREQ 12:58 → ER 17:26
DX: S09.90XA Unspecified injury of head, initial encounter (principal); R56.9 Unspecified convulsions; D64.9 Anemia, unspecified; J44.9 Chronic obstructive pulmonary disease, unspecified; E11.9 Type 2 diabetes mellitus without complications; K21.9 Gastro-esophageal reflux disease without esophagitis; I10 Essential (primary) hypertension; F20.9 Schizophrenia, unspecified; Z79.899 Other long term (current) drug therapy; W18.39XA Other fall on same level, initial encounter; Y93.89 Activity, other specified; Y92.89 Other specified places as the place of occurrence of the external cause; Y99.8 Other external cause status
CPT/HCPCS: 80048; 81003; 82962; 85025; 36415; 70450; 99285; Z7610 ×3

== ENCOUNTER 2024-01-24 10:38 | Emergency (ER) | payer MEDICAID ==
[~2024-01-24] VITALS: Ht 167.6 cm; Wt 75.0 kg
[2024-01-24 10:40] VITALS: O2SAT 98
[2024-01-24 11:30] LABS: HEMATOCRIT. 47.4 % (42.0-52.0); HEMOGLOBIN. 15.5 g/dL (14.0-18.0); MEAN CORPUSCULAR HEMOGLOBIN 26.5 pg (28.0-32.0); MEAN CORPUSCULAR HGB CONC 32.7 g/dL (31.0-37.0); MEAN CORPUSCULAR VOLUME 81.2 fL (80.0-94.0); MEAN PLATELET VOLUME 7.5 fl (7.4-10.4); PLATELET 675 x1000/uL (130-400); RED BLOOD CELL COUNT 5.84 mill/uL (4.7-6.1); WHITE BLOOD COUNT 21.1 x1000/uL (4.5-11.0)
[2024-01-24 11:34] LABS: DIFFERENTIAL COMMENT 1
[2024-01-24 11:42] LABS: CHLORIDE 105 mEq/L (98-107); POTASSIUM 3.4 mEq/L (3.5-5.1); SODIUM 143 mEq/L (136-145)
[2024-01-24 11:43] LABS: CARBON DIOXIDE 25 mEq/L (21-32)
[2024-01-24 11:44] LABS: CALCIUM 9.9 mg/dL (8.7-10.4)
[2024-01-24 11:48] LABS: CREATININE 1.1 mg/dL (0.6-1.3); GLUCOSE 144 mg/dL (70-105)
[2024-01-24 11:49] LABS: UREA NITROGEN BLOOD 6 mg/dL (9-23)
[2024-01-24] MEDS: ONDANSETRON HCL 4MG/2ML INJ IV ONE (12:02)
[2024-01-24] MEDS: PANTOPRAZOLE SODIUM 40 MG/VIAL IV ONE (12:02)
[2024-01-24 12:12] LABS: PLATELET ESTIMATE INCREASED
[2024-01-24 12:21] LABS: TROPONIN I HIGH SENSITIVITY < 4 ng/L (3.0-53)
[2024-01-24] MEDS ORDERED: VANCOMYCIN 1,250 MG in DEXT 5% WATER 250 ML IV SCH (12:45)
[2024-01-24] MEDS: KCL 10MEQ/50ML PREMIX 50 ML IV ONE (12:45)
[2024-01-24] MEDS: SODIUM CHLORIDE 0.9% 1,000 ML IV ONE (13:15)
[2024-01-24] MEDS: VANCOMYCIN 1.25GM PMX (XELLIA) 250 ML IV SCH (13:16)
[2024-01-24 13:26] LABS: INR 1.1; PARTIAL THROMBOPLASTIN TIME 25.7 sec (23.4-31.0); PROTHROMBIN TIME 12.5 sec (9.6-11.0)
[2024-01-24 13:31] LABS: LACTIC ACID 2.1 mmol/L (0.4-2.0)
[2024-01-24 13:56] LABS: CLARITY URINE CLEAR (CLEAR); COLOR URINE DARK YELLOW (YELLOW); GLUCOSE URINE NEGATIVE (NEGATIVE); KETONES URINE 1+ (NEGATIVE); LEUKOCYTE ESTERASE URINE TRACE (NEGATIVE); NITRITE URINE NEGATIVE (NEGATIVE); OCCULT BLOOD URINE NEGATIVE (NEGATIVE); PROTEIN URINE 2+ (NEGATIVE); SPECIFIC GRAVITY URINE 1.028 (1.005-1.030)
[2024-01-24 14:13] LABS: HYALINE CASTS URINE 20-30 /lpf
[2024-01-24 14:17] LABS: SQUAMOUS EPITHELIAL CELL URINE 2+ /lpf (RARE/1+)
[2024-01-24 14:19] LABS: BACTERIA URINE TRACE; RBC URINE NONE SEEN /hpf (0-2)
[2024-01-24] MEDS: PIPERACILLIN/TAZO 3.375G/50ML 50 ML IV STA (15:14)
[2024-01-24 17:43] VITALS: BP 114/81; PULSE 89; RESP 16; TEMP 98.2
== END 2024-01-24 18:03 | disposition short-term general hospital (02) ==
LOC: ER 10:49
DX: R11.2 Nausea with vomiting, unspecified (principal); D64.9 Anemia, unspecified; J44.9 Chronic obstructive pulmonary disease, unspecified; E11.9 Type 2 diabetes mellitus without complications; K21.9 Gastro-esophageal reflux disease without esophagitis; I10 Essential (primary) hypertension; F20.9 Schizophrenia, unspecified; Z79.899 Other long term (current) drug therapy
CPT/HCPCS: 80048; 81003; 82962; 83880; 83605; 83690; 85025; 85610; 85730; 87040; 87086; 84484; 36415; 84145; 71045; 74176; 93005; 96367; 96365; 96375; 99285; J3370; J2405; J2543; J3480; J7030; Z7610 ×4; J2470; J7060